=== PATIENT | male | born 1960 ===

== ENCOUNTER 2018-02-22 15:56 | Outpatient (CLI) | payer OTHER ==
[2018-02-22 17:05] LABS: eGFR (African) > 60; eGFR (Non-African) > 60
== END 2018-02-22 16:05 ==
LOC: LAB 15:56
PROVIDERS: ATTEND Family Medicine
DX: I10 Essential (primary) hypertension (principal); Z11.59 Encounter for screening for other viral diseases
CPT/HCPCS: 36415; 80053; 80061; 86803

== ENCOUNTER 2019-06-24 17:53 | Outpatient (CLI) | payer OTHER ==
[2019-06-24 20:05] LABS: A1C 8.1 % (<5.7); eGFR (Non-African) > 60
[2019-06-24 20:06] LABS: HDL 37 mg/dL (>40)
== END 2019-06-24 17:56 ==
LOC: LAB 17:53
PROVIDERS: ATTEND Family Medicine
DX: E11.9 Type 2 diabetes mellitus without complications (principal); Z79.4 Long term (current) use of insulin; I10 Essential (primary) hypertension
CPT/HCPCS: 36415; 80053; 80061; 82043; 83036